=== PATIENT | male | born 1945 | race Asian ===

== ENCOUNTER 2018-05-08 15:22 | Emergency (ER) | payer OTHER, MEDICARE ==
[~2018-05-08] VITALS: Ht 182.9 cm; Wt 104.3 kg
[~2018-05-08 15:22] MED LIST: ASA LOW STR81 MG OR; EDARBI40 MG OR; INSU100I2 SC; METF500T PO
[2018-05-08 15:27] VITALS: TEMP 97.9
[2018-05-08 16:13] VITALS: BP 155/88
== END 2018-05-08 16:13 | disposition home or self-care (01) ==
LOC: ED 15:22
DX: T23.271A Burn of second degree of right wrist, initial encounter (principal); T31.0 Burns involving less than 10% of body surface; X13.1XXA Other contact with steam and other hot vapors, initial encounter; Y92.89 Other specified places as the place of occurrence of the external cause
CPT/HCPCS: 99282

== ENCOUNTER 2023-03-19 15:12 | Emergency (ER) | payer OTHER, MEDICARE ==
[~2023-03-19] VITALS: Ht 182.9 cm; Wt 106.1 kg
[2023-03-19 15:14] VITALS: TEMP 97.9
[2023-03-19 15:33] VITALS: BP 164/77
== END 2023-03-19 17:05 | disposition home or self-care (01) ==
LOC: ED 15:12
DX: S61.011A Laceration without foreign body of right thumb without damage to nail, initial encounter (principal); W27.0XXA Contact with workbench tool, initial encounter
CPT/HCPCS: 90471; 90715; 99283

== ENCOUNTER 2023-11-15 11:43 | Outpatient (CLI) | payer OTHER, MEDICARE | END 2023-11-15 19:41 | disposition home or self-care (01) | LOC: RAD 11:43 | PROVIDERS: ATTEND Internal Medicine | DX: M25.512 Pain in left shoulder (principal) ==